=== PATIENT | male | born 2000 | race Two or more races ===

== ENCOUNTER 2022-03-07 05:21 | Inpatient (IN) | payer OTHER ==
[~2022-03-07] VITALS: Ht 172.7 cm; Wt 55.6 kg
[2022-03-07 06:36] LABS: Basophils # (auto) 0 10 ^3/uL (0-0.2); Basophils % (auto) 0.7 % (0.0-2.0); Eosinophils # (auto) 0.2 10 ^3/uL (0-0.8); Eosinophils % (auto) 3.1 % (0.0-7.0); Hematocrit 45.4 % (41.0-53.0); Hemoglobin 15.5 g/dL (13.5-17.5); Lymphocytes # (auto) 1.3 10 ^3/uL (0.4-5.4); Lymphocytes % (auto) 22.6 % (10.0-50.0); Mean Corpuscular Hemoglobin 31.3 pg (28.0-32.0); Mean Corpuscular Hgb Conc. 34.2 g/dL (32.0-36.0); Mean Corpuscular Volume 91.4 fL (80.0-100.0); Monocytes # (auto) 0.5 10 ^3/uL (0-1.3); Monocytes % (auto) 9.5 % (0.0-12.0); Neutrophils # (auto) 3.6 10 ^3/uL (1.6-8.6); Neutrophils % (auto) 64.1 % (37.0-80.0); Nucleated Red Blood Cells % 0.1 %; Red Blood Cells 4.96 10^6/uL (4.5-5.90); Red Cell Distribution Width 13.4 % (11.8-14.3); White Blood Cell 5.7 10^3/uL (4.4-10.8)
[2022-03-07] MEDS ORDERED: ASPirin 325 MG TAB PO ONE (06:45)
[2022-03-07 06:55] LABS: Albumin 4.3 g/dL (3.4-5.0); Calcium 9.2 mg/dL (8.5-10.1); Potassium 3.9 mmol/L (3.5-5.1)
[2022-03-07 06:57] LABS: INR 1.06 (0.9-1.15); Partial Thromboplastin Time 26.2 sec (24.6-33.4)
[2022-03-07 06:58] LABS: BUN/Creatinine Ratio 11.8; Bilirubin, Total 0.6 mg/dL (0.2-1.0); Total Protein 7.6 g/dL (6.4-8.2)
[2022-03-07 09:19] LABS: CRP High Sensitivity 0.04 mg/dL (< 0.3); Magnesium 2.2 mg/dL (1.6-2.6)
[2022-03-07 10:37] LABS: Amphetamine Screen, Urine NEGATIVE (NEGATIVE); Barbiturate Scree,Urine NEGATIVE (NEGATIVE); Benzodiazephine Screen, Urine NEGATIVE (NEGATIVE); Cannabinoid Screen, Urine NEGATIVE (NEGATIVE); Cocaine Screen, Urine NEGATIVE (NEGATIVE); Opiate Scree,Urine NEGATIVE (NEGATIVE); Phencyclidine Screen, Urine NEGATIVE (NEGATIVE)
[2022-03-07] MEDS ORDERED: ONDANSETRON HCL 4 MG/2 ML VIAL IV PRN (12:30)
[2022-03-07] MEDS ORDERED: MORPHINE SULFATE INJ 2 MG/ml SYRG IV PRN ×2 (12:30→12:45)
[2022-03-07] MEDS ORDERED: ATORVASTATIN 20 MG TAB PO ONE (12:30)
[2022-03-07] MEDS ORDERED: ACETAMINOPHEN 325 MG TAB PO PRN (12:30)
[2022-03-07] MEDS ORDERED: NITROGLYCERIN 0.4 MG SL TAB SL PRN ×2 (12:30)
[2022-03-07] MEDS: ENOXAPARIN SOD 60 MG/0.6 ML SYRINGE SC SCH (21:35)
[2022-03-07 22:00] VITALS: BP 107/78
[2022-03-07 22:35] VITALS: BP 107/78
[2022-03-08 05:12] LABS: Basophils # (auto) 0 10 ^3/uL (0-0.2); Basophils % (auto) 0.7 % (0.0-2.0); Eosinophils # (auto) 0.1 10 ^3/uL (0-0.8); Eosinophils % (auto) 1.5 % (0.0-7.0); Lymphocytes # (auto) 1.6 10 ^3/uL (0.4-5.4); Mean Corpuscular Hemoglobin 31.2 pg (28.0-32.0); Mean Corpuscular Hgb Conc. 34.1 g/dL (32.0-36.0); Mean Corpuscular Volume 91.7 fL (80.0-100.0); Monocytes # (auto) 0.7 10 ^3/uL (0-1.3); Monocytes % (auto) 10.6 % (0.0-12.0); Neutrophils # (auto) 3.8 10 ^3/uL (1.6-8.6); Neutrophils % (auto) 61.2 % (37.0-80.0); Nucleated Red Blood Cells % 0.2 %; Red Blood Cells 4.79 10^6/uL (4.5-5.90); Red Cell Distribution Width 13.8 % (11.8-14.3); White Blood Cell 6.2 10^3/uL (4.4-10.8)
[2022-03-08 05:23] VITALS: BP 119/77
[2022-03-08 05:24] LABS: Albumin 4.1 g/dL (3.4-5.0); BUN/Creatinine Ratio 15.9; Calcium 9.5 mg/dL (8.5-10.1)
[2022-03-08 05:28] LABS: Bilirubin, Total 0.7 mg/dL (0.2-1.0); Total Protein 7.3 g/dL (6.4-8.2)
[2022-03-08 09:00] VITALS: BP 115/62
[2022-03-08] MEDS: ASPirin 325 MG TAB PO SCH (10:17)
[2022-03-08] MEDS: DOCUSATE SOD 100 MG CAP PO SCH (10:18)
[2022-03-08] MEDS: ENOXAPARIN SOD 60 MG/0.6 ML SYRINGE SC SCH ×2 (10:19→22:20)
[2022-03-08 13:00] VITALS: BP 118/55
[2022-03-08 17:00] VITALS: BP 107/64
[2022-03-08 22:00] VITALS: BP 104/54
[2022-03-09 05:00] VITALS: BP 114/61
[2022-03-09 09:03] VITALS: BP 116/72
[2022-03-09] MEDS: ASPirin 325 MG TAB PO SCH (09:33)
[2022-03-09] MEDS: DOCUSATE SOD 100 MG CAP PO SCH (09:33)
[2022-03-09] MEDS: ENOXAPARIN SOD 60 MG/0.6 ML SYRINGE SC SCH (09:33)
[2022-03-09] MEDS ORDERED: IBUP600T28 PO (10:41)
[2022-03-09] MEDS ORDERED: COLC1TAB3 PO (10:41)
[2022-03-09 11:50] VITALS: BP 116/72
== END 2022-03-09 13:20 | disposition home or self-care (01) | DRG 207 ==
LOC: ER 05:21 → TELE 12:25 → TELE-WESTW 21:32
PROVIDERS: ADMIT Nurse Practitioner Family; ATTEND Family Medicine
DX: I30.9 Acute pericarditis, unspecified (principal); I51.9 Heart disease, unspecified; Z20.822 Contact with and (suspected) exposure to COVID-19
CPT/HCPCS: 36415; 71045; 80053; 80061; 80307; 83036; 83690; 83735; 83880; 84100; 84443; 84484; 85025; 85379; 85610; 85652; 85730; 86141; 87426; 93005; 93306; 93970; 96372; G0378

== ENCOUNTER 2022-03-22 22:46 | Emergency (ER) | payer OTHER ==
[~2022-03-22] VITALS: Ht 172.7 cm; Wt 57.3 kg
[~2022-03-22 22:46] MED LIST: COLC1TAB3 PO; IBUP600T28 PO
[2022-03-22 23:16] LABS: Basophils # (auto) 0 10 ^3/uL (0-0.2); Basophils % (auto) 0.5 % (0.0-2.0); Eosinophils # (auto) 0.1 10 ^3/uL (0-0.8); Eosinophils % (auto) 2.1 % (0.0-7.0); Hematocrit 46.5 % (41.0-53.0); Hemoglobin 15.5 g/dL (13.5-17.5); Lymphocytes # (auto) 1.5 10 ^3/uL (0.4-5.4); Lymphocytes % (auto) 21.3 % (10.0-50.0); Mean Corpuscular Hemoglobin 30.7 pg (28.0-32.0); Mean Corpuscular Hgb Conc. 33.4 g/dL (32.0-36.0); Monocytes # (auto) 0.8 10 ^3/uL (0-1.3); Monocytes % (auto) 10.8 % (0.0-12.0); Neutrophils # (auto) 4.6 10 ^3/uL (1.6-8.6); Neutrophils % (auto) 65.3 % (37.0-80.0); Nucleated Red Blood Cells % 0.1 %; Red Blood Cells 5.05 10^6/uL (4.5-5.90); Red Cell Distribution Width 13.3 % (11.8-14.3); White Blood Cell 7.1 10^3/uL (4.4-10.8)
[2022-03-22 23:36] LABS: Albumin 4.4 g/dL (3.4-5.0); Calcium 9.4 mg/dL (8.5-10.1); Potassium 3.9 mmol/L (3.5-5.1)
[2022-03-22 23:39] LABS: Bilirubin, Total 0.3 mg/dL (0.2-1.0); Total Protein 7.7 g/dL (6.4-8.2)
[2022-03-23] MEDS ORDERED: IBUP600T28 PO (06:45)
[2022-03-23 06:54] LABS: Urine Bacteria FEW /hpf (None Seen); Urine Blood Negative /uL (Negative); Urine Mucus FEW (None Seen); Urine Specific Gravity 1.008 (1.001-1.035); Urine Sperm PRESENT /hpf (None Seen); Urine WBC 1 /hpf (0 - 3)
[2022-03-23 07:04] VITALS: BP 96/66
== END 2022-03-23 07:05 | disposition home or self-care (01) ==
LOC: ER 22:50
DX: R07.9 Chest pain, unspecified (principal)
CPT/HCPCS: 36415; 71045; 80053; 81001; 84484; 85025; 93005

== ENCOUNTER 2022-11-23 07:25 | Emergency (ER) | payer MEDICAID ==
[~2022-11-23] VITALS: Ht 175.3 cm; Wt 55.8 kg
[~2022-11-23 07:25] MED LIST changes: +BACDST PO; +BACIOIN49 OP; +IBUP1TAB5 PO; -IBUP600T28 PO; +[UNRECOGNIZED DRUG - CODE] EX
[2022-11-23 07:29] VITALS: BP 119/79
[2022-11-23] MEDS ORDERED: CEPH500C PO (08:44)
[2022-11-23] MEDS ORDERED: NAPR-746 PO (08:44)
== END 2022-11-23 08:57 | disposition home or self-care (01) ==
LOC: ER 07:25
DX: L60.0 Ingrowing nail (principal); Z79.1 Long term (current) use of non-steroidal anti-inflammatories (NSAID); Z79.899 Other long term (current) drug therapy

== ENCOUNTER 2023-04-29 15:29 | Emergency (ER) | payer BC, MEDICAID ==
[~2023-04-29] VITALS: Ht 172.7 cm; Wt 80.0 kg
[~2023-04-29 15:29] MED LIST changes: +CEPH500C PO; +NAPR-746 PO
[2023-04-30 00:57] VITALS: BP 115/63; PULSE 78; RESP 18; TEMP 97.6; O2SAT 97
== END 2023-04-30 00:59 | disposition home or self-care (01) ==
LOC: ER 15:29
DX: S00.03XA Contusion of scalp, initial encounter (principal); W22.8XXA Striking against or struck by other objects, initial encounter; Y93.89 Activity, other specified; Y92.89 Other specified places as the place of occurrence of the external cause; Y99.8 Other external cause status

== ENCOUNTER → 2024-04-02 | Outpatient (CLI) | payer BC, MEDICAID ==
[2024-04-02 10:31] LABS: Urine Bacteria None Seen /hpf (None Seen)
[2024-04-02 10:50] LABS: Urine Blood TRACE /uL (Negative); Urine Clarity Clear (Clear); Urine Color Light-Yellow (Yellow); Urine Protein, UAD Negative (Negative); Urine Specific Gravity 1.021 (1.001-1.035); Urine Urobilinogen Normal (Negative); Urine WBC <1 /hpf (0 - 3); Urine pH 5.5 (5.0-9.0)
[2024-04-02 10:58] LABS: Basophils # (auto) 0 10 ^3/uL (0-0.2); Basophils % (auto) 0.5 % (0.0-2.0); Eosinophils # (auto) 0.1 10 ^3/uL (0-0.8); Eosinophils % (auto) 2.4 % (0.0-7.0); Hematocrit 46.4 % (41.0-53.0); Hemoglobin 15.7 g/dL (13.5-17.5); Lymphocytes # (auto) 0.9 10 ^3/uL (0.4-5.4); Lymphocytes % (auto) 19.7 % (10.0-50.0); Mean Corpuscular Hemoglobin 30.9 pg (28.0-32.0); Mean Corpuscular Hgb Conc. 33.7 g/dL (32.0-36.0); Mean Corpuscular Volume 91.6 fL (80.0-100.0); Monocytes # (auto) 0.5 10 ^3/uL (0-1.3); Monocytes % (auto) 10.3 % (0.0-12.0); Neutrophils % (auto) 67.1 % (37.0-80.0); Platelet Count (auto) 249 10^3/uL (140-450); Red Blood Cells 5.07 10^6/uL (4.5-5.90); Red Cell Distribution Width 13.6 % (11.8-14.3); White Blood Cell 4.5 10^3/uL (4.4-10.8)
[2024-04-02 11:02] LABS: Anion Gap 7 (5-15); Carbon Dioxide 27 mmol/L (20-31); Chloride 107 mmol/L (98-107); Sodium 141 mmol/L (136-145)
[2024-04-02 11:03] LABS: Calcium 10.2 mg/dL (8.7-10.4)
[2024-04-02 11:08] LABS: Blood Urea Nitrogen 8 mg/dL (9-23); Glucose 98 mg/dL (74-106); Triglycerides 70 mg/dL (< 150)
[2024-04-02 11:09] LABS: LDL Cholesterol 93 mg/dL (< 100)
[2024-04-02 11:10] LABS: Cholesterol 147 mg/dL (< 200); HDL Cholesterol 44 mg/dL (40-59)
[2024-04-02 11:46] LABS: Erythrocyte Sedimentation Rate 2 mm/hr (0-20)
== END | disposition home or self-care (01) ==
LOC: LAB 10:18
PROVIDERS: ATTEND Internal Medicine
DX: G44.209 Tension-type headache, unspecified, not intractable (principal); E78.5 Hyperlipidemia, unspecified; E03.9 Hypothyroidism, unspecified; Z00.00 Encounter for general adult medical examination without abnormal findings
CPT/HCPCS: 36415; 80048; 80061; 81001; 84443; 85025; 85652

== ENCOUNTER 2024-06-10 07:05 | Emergency (ER) | payer BC, MEDICAID ==
[~2024-06-10] VITALS: Ht 175.3 cm; Wt 68.0 kg
--- NOTE | 2024-06-10 07:28 | ED.PDOC ---
HPI (NEURO) HPI Comments 24 year old male presents to the ED with chief complaint of right sided headache. Patient reports that he has been experiencing a right sided headache for the past 2 months, worsening when sleeping at night. Patient relays that he informed his PCP yesterday of the concern and that it has been slowly worsening over time, so he was advised to come into the ED for a CT scan to be performed of his head. Patient denies any N/V, dizziness, fever, chills, or blurred vision. Time Seen by MD: 07:25 Primary Care Provider: NONE Reviewed Notes: Nurses Notes, Medications, Allergies Information Source: Patient Mode of Arrival: Ambulatory Severity: Moderate Headache Severity: Moderate Timing: Months Duration: Since onset Prehospital treatment: None Headache Quality: Aching Headache Location: Temporal (Right sided) Onset: At rest Circumstances: Spontaneous Symptoms: None Before: Normal Modifying factors: Change in position Associated Signs and Symptoms: Headache Past Medical History PAST MEDICAL HISTORY: Denies Surgical History: Denies all surgeries Family History Family History: Unknown Social History Smoker: Non-Smoker Alcohol: Denies ETOH Use Drugs: Denies Drug Use Lives In: Home Constitutional: denies: chills, diaphoresis, fatigue, fever, malaise, sweats, weakness, others EENTM: denies: blurred vision, double vision, ear bleeding, ear discharge, ear drainage, ear pain, ear ringing, eye pain, eye redness, hearing loss, mouth pain, mouth swelling, nasal discharge, nose bleeding, nose congestion, nose pain, photophobia, tearing, throat pain, throat swelling, voice changes, others Respiratory: denies: cough, hemoptysis, orthopnea, SOB at rest, shortness of breath, SOB with excertion, stridor, wheezing, others Cardiovascular: denies: chest pain, dizzy spells, diaphoresis, Dyspnea on exertion, edema, irregular heart beat, left arm pain, lightheadedness, palpitations, PND, syncope, others Gastrointestinal: denies: abdomen distended, abdominal pain, blood streaked bowels, constipated, diarrhea, dysphagia, difficulty swallowing, hematemesis, melena, nausea, poor appetite, poor fluid intake, rectal bleeding, rectal pain, vomiting, others Genitourinary: denies: burning, dysuria, flank pain, frequency, hematuria, incontinence, penile discharge, penile sore, pain, testicle pain, testicle swelling, urgency, others Neurological: reports: headache (Rt sided); denies: dizziness, fainting, left sided numbness, left sided weakness, numbness, paresthesia, pre-existing deficit, right sided numbness, right sided weakness, seizure, speech problems, tingling, tremors, weakness, others Musculoskeletal: denies: back pain, gout, joint pain, joint swelling, muscle pain, muscle stiffness, neck pain, others Integumetry: denies: bruises, change in color, change in hair/nails, dryness, laceration, lesions, lumps, rash, wounds, others Allergic/Immunocompromised: denies: Difficulty Healing, Frequent Infections, Hives, Itching, others Hematologic/Lymphatic: denies: anemia, blood clots, easy bleeding, easy bruising, swollen glands, others Endocrine: denies: excessive hunger, excessive sweating, excessive thirst, excessive urination, flushing, intolerance to cold, intolerance to heat, unexplained weight gain, unexplained weight loss, others Psychiatric: denies: anxiety, bipolar disorder, depression, hopeless, panic disorder, schizophrenia, sleepless, suicidal, others All Other Systems: Reviewed and Negative Physical Exam General Appearance: No Apparent Distress, Normal HEENT: Normal ENT Inspection, PERRL/EOMI Neck: Full Range of Motion, Non-Tender, Normal, Normal Inspection, Other (no mengismus. No ttp, steps, deformities to c spine. to ttp or spasm to paraspinal muslces, SCM or trapezius) Respiratory: Chest Non-Tender, Lungs Clear, No Accessory Muscle Use, No Respiratory Distress, Normal Breath Sounds Cardiovascular: No Edema, No JVD, No Murmur, No Gallop, Normal Peripheral Pulses, Regular Rate/Rhythm Breast Exam: Deferred Gastrointestinal: No Organomegaly, Non Tender, No Pulsatile Mass, Normal Bowel Sounds, Soft Genitalia: Deferred Pelvic: Deferred Rectal: Deferred Extremities: No calf tenderness, Normal capillary refill, Normal inspection, Normal range of motion, Non-tender, No pedal edema Musculoskeletal : Apperance: Normal Neurologic: Alert, repairer welding systems and equipment II-XII nml as Tested, No Motor Deficits, Normal Affect, Normal Mood, No Sensory Deficits Cerebellar Function: Normal Reflexes: Normal Skin: Dry, Normal Color, Warm Lymphatic: No Adenopathy Was a procedure done? Was a procedure done?: No Differential Diagnosis (SZ) Seizure: Alcohol Withdrawl, Drug Ingestion, Meningitis CVA: CVA, Delirium Tremens, Electrolyte Imbalance, Encephalopathy, Hypoxemia, Mass Lesion, Respiratory Failure, SAH, TIA General Weakness: Electrolyte imbalance, Hypotension, Meniere's disease, Repiratory failure, TIA Headache: Migraine, Post Lumber Puncture, Closed Head Injury, CVA, Epidural Hemorrhage, Intracerebral Hemorrhage, Subarachnoid Hemorrhage, Subdural Hemorrhage, Meningitis X-Ray, Labs, Meds, VS Vital Signs Date Time Temp Pulse Resp B/P (MAP) Pulse Ox O2 Delivery O2 Flow Rate FiO2 06/10/24 07:33 98.3 96 16 133/87 (102) 99 CT Head: FINDINGS: There is no evidence of acute intracranial hemorrhage, extra-axial collection, mass effect, midline shift, herniation or hydrocephalus. The ventricles, sulci and cisterns are age appropriate. The maravilla-white differentiation is intact. The visualized paranasal sinuses and mastoid air cells are clear. No depressed calvarial fracture. The surrounding soft tissues are unremarkable. IMPRESSION: 1. No evidence of acute intracranial abnormality. X-Ray, Labs, Meds, VS Comment 24M presents with a 2 month hx of headache. No real change. Nomral exam. CT head negative. Will dc back to care of PCP. Images Reviewed?: Images reviewed and evaluated by me Time of 1ST Reevaluation: 08:25 Reevaluation 1ST: Unchanged Patient Education/Counseling: Diagnosis, Treatment Family Education/Counseling: No Family Present Departure 1 Departure Time of Disposition: 08:14 Impression: Primary Impression: Headache Disposition: 01 HOME / SELF CARE / HOMELESS Condition: Good Discharged With: Self Critical Care Note Critical Care Time?: No Stability Stability form required: No Heart Score Heart Score: Heart Score Response (Comments) Value History N/A 0 EKG N/A 0 Age N/A 0 Risk Factors N/A 0 Troponin N/A 0 Total 0 I personally scribed for RAMIRO HARGROVE MD ([email or web address]) on 06/10/24 at 07:28. Electronically submitted by Florentino Mccord ([email or web address]). I personally scribed for RAMIRO HARGROVE MD ([email or web address]) on 06/10/24 at 08:09. Electronically submitted by Florentino Mccord ([email or web address]). RAMIRO HARGROVE MD Jun 10, 2024 07:28
--- NOTE | 2024-06-10 07:54 | DVH ---
EXAM: CT HEAD WITHOUT CONTRAST INDICATION: Headache x 2 months TECHNIQUE: CT of the head without intravenous contrast. Coronal and sagittal reformatted images are submitted. Radiation Dose : 1. Head: CT Dose: CTDI volume is 91.6 mGy. Dose-length product is 1619.8 mGy*cm The dose indicators for CT are the volume Computed Tomography (CT) Dose Index (CTDIvol) and the Dose Length Product (DLP), and are measured in units of mGy and mGy-cm, respectively. These indicators are not patient dose, but values generated from the CT scanner acquisition factors. The report includes radiation exposure data for exposures received during this examination. All CT scans at this medical facility are performed using dose modulation techniques as appropriate to a performed exam including the following: Automated exposure control was utilized; adjustment of the MA and/or KV according to patient size; and use of iterative reconstruction technique. COMPARISON: None FINDINGS: There is no evidence of acute intracranial hemorrhage, extra-axial collection, mass effect, midline s hift, herniation or hydrocephalus. The ventricles, sulci and cisterns are age appropriate. The maravilla-white differentiation is intact. The visualized paranasal sinuses and mastoid air cells are clear. No depressed calvarial fracture. The surrounding soft tissues are unremarkable. IMPRESSION: 1. No evidence of acute intracranial abnormality.
[2024-06-10 08:21] VITALS: BP 128/63; PULSE 72; RESP 18; TEMP 98.3; O2SAT 99
== END 2024-06-10 08:27 | disposition home or self-care (01) ==
LOC: ER 07:05
DX: R51.9 Headache, unspecified (principal)
CPT/HCPCS: 70450

== ENCOUNTER 2024-11-15 08:50 | Outpatient (CLI) | payer BC, MEDICAID ==
[2024-11-15 10:14] LABS: Anion Gap 9 (5-15); Carbon Dioxide 27 mmol/L (20-31); Chloride 104 mmol/L (98-107); Potassium 4.0 mmol/L (3.5-5.1); Sodium 140 mmol/L (136-145)
[2024-11-15 10:15] LABS: Calcium 10.3 mg/dL (8.7-10.4)
[2024-11-15 10:20] LABS: BUN/Creatinine Ratio 13.6 (10.0-20.0); Blood Urea Nitrogen 12 mg/dL (9-23); Glucose 91 mg/dL (74-106)
== END 2024-11-15 17:00 | disposition home or self-care (01) ==
LOC: LAB 08:50
PROVIDERS: ATTEND Internal Medicine
DX: E11.9 Type 2 diabetes mellitus without complications (principal)
CPT/HCPCS: 36415; 80048